=== PATIENT | female | born 1965 | race Asian ===

== ENCOUNTER 2022-07-10 11:41 | Observation (INO) | payer BC ==
[2022-07-10 12:09] LABS: #Eosinphils 0.1 thou/uL (0.0-0.7); #Lymphocytes 1.5 thou/uL (1.20-3.40); #Monocytes 0.3 thou/uL (0.11-0.59); #Neutrophils 4.9 thou/uL (1.40-6.50); %Basophils 0.1 % (0.0-1.0); %Eosinophils 1.9 % (0.0-10.0); %Lymphocytes 22.2 % (21.0-51.0); %Monocytes 4.4 % (0.0-10.0); %Neutrophils 71.5 % (42.0-75.0); Hemoglobin 13.1 g/dL (12.0-16.0); Mean Corpuscular HGB CONC 33.2 g/dL (32.0-36.0); Mean Corpuscular Hemoglobin 31.5 pg (27.0-31.0); Mean Platelet Volume 6.8 fL (7.4-10.4); Platelet Count 258 10x3/uL (130-400); RBC Distribution Width 11.5 % (11.5-14.5); Red Blood Cell (RBC) Count 4.14 mill/uL (4.20-5.40); White Blood Cell (WBC) Count 6.9 10x3/uL (4.8-10.8)
[2022-07-10 12:29] LABS: ALT (SGPT) 28 U/L (8-55); AST (SGOT) 28 U/L (5-34); Albumin 4.5 g/dL (3.5-5.0); Alkaline Phosphatase 95 U/L (40-110); Anion Gap 11 mmol/L (10-20); BUN (Urea Nitrogen) 12 mg/dL (9.8-20.1); Bilirubin, Total 1.3 mg/dL (0.2-1.2); Calc. Creatinine Clearance 0 mL/min (70-130); Calcium 9.6 mg/dL (7.8-10.44); Carbon Dioxide 29 mmol/L (22-29); Chloride 105 mmol/L (98-107); Estimated GFR 100; Globulin 2.8 g/dL (2.4-3.5); Glucose 99 mg/dL (70-105); Protein, Total 7.3 g/dL (6.0-8.3); Sodium 141 mmol/L (136-145)
[2022-07-10] MEDS ORDERED: Aspirin Chewable 81 MG TAB ONE (12:46)
[2022-07-10 13:08] LABS: Acetaminophen Less than 10.0 mcg/mL (10.0-30.0); Alcohol Less than 10 mg/dL (Less than 10); CK (CPK) 61 U/L (29-168); Salicylate Less than 8.0 mg/dL (15.0-30.0)
[2022-07-10 13:14] LABS: Prothrombin Time 13.5 sec (12.0-14.7)
[2022-07-10 13:15] LABS: PTT 35.5 sec (22.9-36.1)
[2022-07-10] MEDS ORDERED: Ondansetron ODT 4 MG TAB PO PRN (13:50)
[2022-07-10] MEDS ORDERED: Loperamide HCl 2 MG CAP PO PRN (13:50)
[2022-07-10] MEDS ORDERED: Iopamidol-370 76% 500 ML 1 ML ONE (14:16)
[2022-07-10 14:31] LABS: Bilirubin Negative (Negative); Blood, Urine Negative (Negative); Clarity Clear (Clear); Glucose, Urine (Dipstick) Normal (Negative); Ketone, Urine Negative (Negative); Leukocyte Negative Leu/uL (Negative); Nitrite Negative (Negative); Protein, Urine (Dipstick) Negative (Neg-Trace); Specific Gravity, Urine 1.037 (1.002-1.036); Urobilinogen Normal mg/dL (Less than 2)
[2022-07-10 14:39] LABS: Amphetamine Not Detected (NotDetected); Barbiturates Screen Not Detected (NotDetected); Benzodiazepine Screen Not Detected (NotDetected); Cocaine Metabolite Screen Not Detected (NotDetected); Methadone Not Detected (NotDetected); Methamphetamine Not Detected (NotDetected); Opiate Screen Not Detected (NotDetected); Oxycodone Screen Not Detected (NotDetected); Phencyclidine (PCP) Not Detected (NotDetected); THC/Cannabinoid Screen Not Detected (NotDetected); Tricyclic Screen Detected (NotDetected)
[2022-07-10 14:46] LABS: Cardiac Risk 3.6 (Less than 4.5)
[2022-07-10 15:44] VITALS: BMI 21.8
[2022-07-10] MEDS ORDERED: Prevnar 13-Val Conj/PF 0.5 ML SYRINGE IM ONE (17:00)
[2022-07-10 17:16] LABS: Troponin I Less than 0.010 ng/mL (< 0.028)
[2022-07-10] MEDS: Acetaminophen 325 MG TAB PO PRN (20:17)
[2022-07-10] MEDS: Metoprolol Tartrate 25 MG TAB PO SCH (20:19)
[2022-07-10] MEDS: Famotidine 20 MG TAB PO SCH (20:34)
[2022-07-10 20:47] LABS: Troponin I Less than 0.010 ng/mL (< 0.028)
[2022-07-10] MEDS ORDERED: Atorvastatin Calcium 20 MG TAB PO SCH (21:00)
[2022-07-11 05:30] LABS: #Eosinphils 0.1 thou/uL (0.0-0.7); #Lymphocytes 2.2 thou/uL (1.20-3.40); #Monocytes 0.3 thou/uL (0.11-0.59); %Basophils 0.3 % (0.0-1.0); %Lymphocytes 47.8 % (21.0-51.0); %Monocytes 6.4 % (0.0-10.0); %Neutrophils 42.5 % (42.0-75.0); Hemoglobin 11.4 g/dL (12.0-16.0); Mean Corpuscular HGB CONC 32.6 g/dL (32.0-36.0); Mean Corpuscular Volume 95.2 fl (78.0-98.0); Platelet Count 204 10x3/uL (130-400); RBC Distribution Width 11.5 % (11.5-14.5); Red Blood Cell (RBC) Count 3.68 mill/uL (4.20-5.40); White Blood Cell (WBC) Count 4.6 10x3/uL (4.8-10.8)
[2022-07-11 06:35] LABS: Anion Gap 11 mmol/L (10-20); BUN (Urea Nitrogen) 12 mg/dL (9.8-20.1); Calc. Creatinine Clearance 86 mL/min (70-130); Calcium 8.9 mg/dL (7.8-10.44); Carbon Dioxide 26 mmol/L (22-29); Chloride 105 mmol/L (98-107); Estimated GFR 103; Glucose 89 mg/dL (70-105); Potassium 3.7 mmol/L (3.5-5.1); Sodium 138 mmol/L (136-145)
[2022-07-11] MEDS: Famotidine 20 MG TAB PO SCH (08:42)
[2022-07-11] MEDS: Metoprolol Tartrate 25 MG TAB PO SCH (08:42)
[2022-07-11] MEDS ORDERED: Amitriptyline HCl 10 MG TAB PO SCH ×2 (09:00→21:00)
[2022-07-11] MEDS ORDERED: Aspirin 81 mg Enteric Coated Tablet PO SCH (09:00)
[2022-07-11] MEDS: Acetaminophen 325 MG TAB PO PRN (10:15)
[2022-07-11] MEDS ORDERED: Meclizine HCl 25 MG TAB PO PRN ×2 (10:59)
[2022-07-11 15:57] VITALS: BP 127/60; TEMP 97.7
[2022-07-11] MEDS ORDERED: Latanoprost 0.005% Ophth Soln 2.5 ml Bottle EA EYE SCH (21:00)
[2022-07-11] MEDS ORDERED: Cholestyramine/Aspartame 4 gm Packet PO SCH (22:00)
[2022-07-12] MEDS ORDERED: Metoprolol Tartrate 25 MG TAB PO SCH (09:00)
== END 2022-07-11 18:26 | disposition home or self-care (01) ==
LOC: ERS 11:41 → MERGE 12:28 → ERHOLD 12:28 → NEURO 15:03
PROVIDERS: ADMIT Internal Medicine; ATTEND Internal Medicine
DX: R20.0 Anesthesia of skin (principal); R51.9 Headache, unspecified; R42 Dizziness and giddiness; I47.1 Supraventricular tachycardia; E78.5 Hyperlipidemia, unspecified; K52.89 Other specified noninfective gastroenteritis and colitis; I10 Essential (primary) hypertension; M47.812 Spondylosis without myelopathy or radiculopathy, cervical region; M50.321 Other cervical disc degeneration at C4-C5 level; M48.02 Spinal stenosis, cervical region; I07.1 Rheumatic tricuspid insufficiency; J30.2 Other seasonal allergic rhinitis; D53.9 Nutritional anemia, unspecified; Z79.899 Other long term (current) drug therapy; Z91.011 Allergy to milk products; Z91.018 Allergy to other foods; Z98.84 Bariatric surgery status; Z20.822 Contact with and (suspected) exposure to COVID-19
CPT/HCPCS: 36415; 70450; 70496; 70498; 70551; 71045; 72141; 80048; 80053; 80061; 80306; 80307; 81003; 82550; 84443; 84484; 85025; 93005; 93306; 94760; G0378; Q9967; U0003; U0005